=== PATIENT | male | born 1985 | race Caucasian/White ===

== ENCOUNTER 2021-11-27 14:05 | Emergency (ER) | payer SELFPAY ==
[~2021-11-27] VITALS: Ht 182.9 cm; Wt 136.0 kg
--- NOTE | 2021-11-27 14:20 | ED Abdominal Pain ---
General Stated Complaint: ABD PAIN Source of Information: Patient Exam Limitations: No Limitations (ARIS WASHBURN) History of Present Illness Date Seen by Provider: Nov 27, 2021 Time Seen by Provider: 14:19 Initial Comments Patient is a 36-year-old male who presents ED with upper abdominal pain. Pain started this morning when he woke up. Described as a sharp pain that has increase intensity throughout the morning. Not appear to be worsening with eating. No history of previous abdominal surgery. Does have a history of acid reflux. Did drink Pepto-Bismol without much improvement this morning. Did drink [employer] last night. Uses NSAID periodically. Denies of any dark tarry stool, vomiting, diarrhea. Denies history of coronary artery disease, CHF. Denies any specific chest pain however does have some subtle shortness of breath. No recent travels or surgeries, leg swelling. Denies history of similar symptoms in the past. Describes pain twyla similar to when he had kidney stones. (ARIS WASHBURN) Allergies and Home Medications Allergies Coded Allergies: Penicillins (Verified Allergy, Unknown, 11/27/21) Patient Home Medication List Home Medication List Reviewed: Yes (ARIS WASHBURN) Hydrocodone/Acetaminophen (Hydrocodone-Acetamin 5-325 mg) 5 Mg-325 Mg Tablet, 1 TAB PO Q4H PRN for PAIN-MODERATE (5-7) Prescribed by: REMY ANDREWS on 11/27/21 1521 Review of Systems Review of Systems Constitutional: No chills, No diaphoresis, No malaise, No weakness EENTM: No Eye Pain Respiratory: Denies Cough, Denies SOA With Exertion; SOA at Rest Cardiovascular: Denies Chest Pain, Denies Edema, Denies Irregular Heart Rate Gastrointestinal: Abdominal Pain; Denies Diarrhea, Denies Nausea, Denies Rectal Bleeding, Denies Vomiting Genitourinary: Denies Burning, Denies Discharge Musculoskeletal: No back pain, No joint pain Skin: No change in color, No change in hair/nails (ARIS WASHBURN) All Other Systems Reviewed Negative Unless Noted: Yes (ARIS WASHBURN) Physical Exam Vital Signs Vital Signs - First Documented 11/27/21 14:11 Temp 36.7 Pulse 65 Resp 16 B/P (MAP) 174/105 (128) Pulse Ox 98 O2 Delivery Room Air (VIGNESH PENA MD) Vital Signs Capillary Refill : (ARIS WASHBURN) Height/Weight/BMI Height: '" Weight: lbs. oz. kg; BMI Method: General Appearance: WD/WN, no apparent distress HEENT: PERRL/EOMI, normal ENT inspection, TMs normal, pharynx normal Neck: non-tender, full range of motion, supple, normal inspection Respiratory: chest non-tender, lungs clear, normal breath sounds Cardiovascular: regular rate, rhythm, no edema, no gallop Gastrointestinal: normal bowel sounds, soft, no organomegaly, tenderness (Epigastric tenderness on palpation. 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, no motor/sensory deficits, oriented x 3 Skin: normal color, warm/dry (ARIS WASHBURN) Progress/Results/Core Measures Results/Orders Lab Results Laboratory Tests Test 11/27/21 14:23 Range/Units White Blood Count 9.2 4.3-11.0 10^3/uL Red Blood Count 5.14 4.30-5.52 10^6/uL Hemoglobin 16.1 13.3-17.7 g/dL Hematocrit 46 40-54 % Mean Corpuscular Volume 90 80-99 fL Mean Corpuscular Hemoglobin 31 25-34 pg Mean Corpuscular Hemoglobin Concent 35 32-36 g/dL Red Cell Distribution Width 12.2 10.0-14.5 % Platelet Count 189 130-400 10^3/uL Mean Platelet Volume 10.3 9.0-12.2 fL Immature Granulocyte % (Auto) 0 % Neutrophils (%) (Auto) 55 42-75 % Lymphocytes (%) (Auto) 33 12-44 % Monocytes (%) (Auto) 9 0-12 % Eosinophils (%) (Auto) 2 0-10 % Basophils (%) (Auto) 0 0-10 % Neutrophils # (Auto) 5.1 1.8-7.8 X 10^3 Lymphocytes # (Auto) 3.1 1.0-4.0 X 10^3 Monocytes # (Auto) 0.8 0.0-1.0 X 10^3 Eosinophils # (Auto) 0.2 0.0-0.3 10^3/uL Basophils # (Auto) 0.0 0.0-0.1 10^3/uL Immature Granulocyte # (Auto) 0.0 0.0-0.1 10^3/uL Sodium Level 140 135-145 MMOL/L Potassium Level 3.6 3.6-5.0 MMOL/L Chloride Level 104 98-107 MMOL/L Carbon Dioxide Level 24 21-32 MMOL/L Anion Gap 12 5-14 MMOL/L Blood Urea Nitrogen 9 7-18 MG/DL Creatinine 0.82 0.60-1.30 MG/DL Estimat Glomerular Filtration Rate 115 BUN/Creatinine Ratio 11 Glucose Level 103 70-105 MG/DL Calcium Level 9.3 8.5-10.1 MG/DL Corrected Calcium 9.1 8.5-10.1 MG/DL Total Bilirubin 0.4 0.1-1.0 MG/DL Aspartate Amino Transf (AST/SGOT) 27 5-34 U/L Alanine Aminotransferase (ALT/SGPT) 42 0-55 U/L Alkaline Phosphatase 73 40-136 U/L Troponin I < 0.028 <0.028 NG/ML Total Protein 7.0 6.4-8.2 GM/DL Albumin 4.2 3.2-4.5 GM/DL Lipase 19 8-78 U/L (VIGNESH PENA MD) Vital Signs/I&O 11/27/21 11/27/21 14:11 15:30 Temp 36.7 Pulse 65 72 Resp 16 18 B/P (MAP) 174/105 (128) 163/99 Pulse Ox 98 97 O2 Delivery Room Air Room Air (VIGNESH PENA MD) Departure Communication (PCP) Patient with a history of acid reflux. Currently on Protonix 40mg . Worsening pain this morning when he woke up. No radiating pain. No nausea, vomiting, diarrhea. Similar type pain in the past but not as severe. Denies history of ulcer. No dark tarry stool. No history of previous abdominal surgery. Lab work showed normal white blood count, liver enzymes, pancreatic enzymes. Did drink yesterday with NSAID use periodically. Patient was given GI cocktail with some improvement. Due to location of pain cardiac work-up was ordered which was unremarkable. History of hypertension. Patient was given a dose of IV pain medication with improvement of pain. Discussed with patient due to reassuring lab work and imaging and the location of pain would likely be unremarkable. Does not appear to be cardiac or pulmonary in nature. He states he has had similar pain and was recommended to get EGD for further evaluation. Discussed potential possibilities such as gallbladder disease, gastric ulcer, gastritis, esophagitis, Mcmanus's. Patient acknowledges. Patient was requesting a few days worth of pain medication and if pain increases he will return back to ED. He will follow-up with his primary care physician for further evaluation and follow-up with EGD. Discussed continue with Protonix. Discussed diet changes, avoiding alcohol, NSAID use. If any worsening symptoms strongly recommend returning back to ED for further evaluation. Discussed potential change in his PPI since he has been on Protonix for some time. Patient will follow up with his primary. No surgical abdomen. No significant worsening pain with eating. He is not tachycardic or hypoxic or recent travels or surgeries suggesting PE. (ARIS WASHBURN) Impression Primary Impression: Abdominal pain Disposition: HOME, SELF-CARE Condition: Stable Departure-Patient Inst. Decision time for Depature: 15:18 (ARIS WASHBURN) [place] [facility] [place] Primary Care Physician KIMO BORJAS DO Patient Instructions: Abdominal Pain, Adult ED Scripts Hydrocodone/Acetaminophen (Hydrocodone-Acetamin 5-325 mg) 5 Mg-325 Mg Tablet 1 TAB PO Q4H PRN for PAIN-MODERATE (5-7), #8 TAB Prov: ARIS WASHBURN 11/27/21 ATTENDING PHYSICIAN NOTE: I was physically present as attending physician in the emergency department during the care of this patient, but I was not directly involved in the decision making or delivery of care for this patient. (VIGNESH PENA MD) ARIS WASHBURN Nov 27, 2021 14:20 VIGNESH PENA MD Nov 29, 2021 14:59
[2021-11-27 14:36] LABS: BASOPHILS % (AUTO) 0 % (0-10); EOSINOPHILS # (AUTO) 0.2 10^3/uL (0.0-0.3); EOSINOPHILS % (AUTO) 2 % (0-10); HEMATOCRIT 46 % (40-54); HEMOGLOBIN 16.1 g/dL (13.3-17.7); LYMPHOCYTES # (AUTO) 3.1 X 10^3 (1.0-4.0); LYMPHOCYTES % (AUTO) 33 % (12-44); MEAN CORPUSCULAR HEMOGLOBIN 31 pg (25-34); MEAN CORPUSCULAR HGB CONC 35 g/dL (32-36); MEAN CORPUSCULAR VOLUME 90 fL (80-99); MEAN PLATELET VOLUME 10.3 fL (9.0-12.2); MONOCYTES # (AUTO) 0.8 X 10^3 (0.0-1.0); MONOCYTES % (AUTO) 9 % (0-12); NEUTROPHILS # (AUTO) 5.1 X 10^3 (1.8-7.8); NEUTROPHILS % (AUTO) 55 % (42-75); PLATELET COUNT 189 10^3/uL (130-400); WHITE BLOOD COUNT 9.2 10^3/uL (4.3-11.0)
[2021-11-27 14:42] LABS: ALBUMIN 4.2 GM/DL (3.2-4.5); CHLORIDE 104 MMOL/L (98-107); POTASSIUM 3.6 MMOL/L (3.6-5.0); SODIUM 140 MMOL/L (135-145)
[2021-11-27 14:43] LABS: CALCIUM 9.3 MG/DL (8.5-10.1)
[2021-11-27 14:44] LABS: GLUCOSE 103 MG/DL (70-105)
[2021-11-27 14:45] LABS: CARBON DIOXIDE 24 MMOL/L (21-32)
[2021-11-27] MEDS ORDERED: LIDOCAINE 2% VISCOUS 15 ML UDC PO ONE (14:45)
[2021-11-27] MEDS ORDERED: ANTACID SUSP 30 ML UDC (MYLANTA) PO ONE (14:45)
[2021-11-27 14:46] LABS: BILIRUBIN,TOTAL 0.4 MG/DL (0.1-1.0)
--- NOTE | 2021-11-27 14:47 | Diagnostic Imaging Report ---
INDICATION: Chest pain. COMPARISON: None available. TECHNIQUE: Single frontal radiograph of the chest dated 11/27/2021. FINDINGS: The cardiac silhouette is within normal limits in size. No significant pulmonary vascular congestion. Low lung volumes though the lungs are clear. No pleural effusion. No pneumothorax. No acute osseous abnormality. IMPRESSION: Low lung volumes without superimposed acute cardiopulmonary abnormality. Dictated by: Dictated on workstation # [id number]
[2021-11-27 14:48] LABS: ALKALINE PHOSPHATASE 73 U/L (40-136); CREATININE SERUM 0.82 MG/DL (0.60-1.30); GFR ESTIMATED 115
[2021-11-27 14:49] LABS: BUN/CREATININE RATIO 11
[2021-11-27 14:51] LABS: ALANINE AMINOTRANSFERASE 42 U/L (0-55); LIPASE 19 U/L (8-78)
[2021-11-27] MEDS ORDERED: fentaNYL INJ 100 MCG/2 ML AMP IVP STA (15:17)
[2021-11-27] MEDS ORDERED: ACHD5005 PO ×2 (15:20→15:21)
[2021-11-27 15:30] VITALS: BP 163/99
== END 2021-11-27 15:30 | disposition home or self-care (01) ==
LOC: EDUNIT# 14:05 → ER 14:06
DX: R10.13 Epigastric pain (principal); K21.9 Gastro-esophageal reflux disease without esophagitis; Z28.310 Unvaccinated for COVID-19
CPT/HCPCS: 36415; 71045; 80053; 83690; 84484; 85025; 93005

== ENCOUNTER 2022-01-03 17:14 | Emergency (ER) | payer OTHER ==
[~2022-01-03] VITALS: Ht 182.8 cm; Wt 136.0 kg
[~2022-01-03 17:14] MED LIST: ACHD5005 PO
[2022-01-03 17:56] LABS: BILIRUBIN,URINE NEGATIVE (NEGATIVE); CLARITY,URINE CLEAR; COLOR,URINE YELLOW; GLUCOSE, URINE (UA) NEGATIVE (NEGATIVE); KETONES,URINE NEGATIVE (NEGATIVE); LEUKOCYTE ESTERASE ,URINE NEGATIVE (NEGATIVE); NITRITE,URINE NEGATIVE (NEGATIVE); PH,URINE 7.5 (5-9); PROTEIN,URINE NEGATIVE (NEGATIVE)
[2022-01-03 17:57] LABS: BASOPHILS # (AUTO) 0.1 10^3/uL (0.0-0.1); BASOPHILS % (AUTO) 1 % (0-10); EOSINOPHILS # (AUTO) 0.3 10^3/uL (0.0-0.3); EOSINOPHILS % (AUTO) 3 % (0-10); HEMATOCRIT 43 % (40-54); HEMOGLOBIN 15.5 g/dL (13.3-17.7); LYMPHOCYTES # (AUTO) 3.3 10^3/uL (1.0-4.0); LYMPHOCYTES % (AUTO) 35 % (12-44); MEAN CORPUSCULAR HEMOGLOBIN 32 pg (25-34); MEAN CORPUSCULAR HGB CONC 36 g/dL (32-36); MEAN CORPUSCULAR VOLUME 90 fL (80-99); MEAN PLATELET VOLUME 10.5 fL (9.0-12.2); MONOCYTES # (AUTO) 0.9 10^3/uL (0.0-1.0); MONOCYTES % (AUTO) 9 % (0-12); NEUTROPHILS % (AUTO) 52 % (42-75); PLATELET COUNT 187 10^3/uL (130-400); WHITE BLOOD COUNT 9.6 10^3/uL (4.3-11.0)
[2022-01-03] MEDS ORDERED: NS IV 1000 ML 1,000 ML IV SCH (18:00)
[2022-01-03] MEDS ORDERED: ONDANSETRON 4 MG/2 ML (SDV) Z0FRAN IVP ONE (18:00)
[2022-01-03] MEDS ORDERED: morphine INJ 4 MG/ML 1 ML (VIAL/SYRINGE) IVP ONE (18:00)
[2022-01-03 18:02] LABS: BACTERIA,URINE NEGATIVE /HPF; RBC,URINE RARE /HPF
[2022-01-03 18:05] LABS: ALBUMIN 4.1 GM/DL (3.2-4.5); POTASSIUM 3.5 MMOL/L (3.6-5.0)
[2022-01-03 18:06] LABS: CALCIUM 8.7 MG/DL (8.5-10.1)
[2022-01-03] MEDS ORDERED: morphine INJ 10 MG/ML 1ML (SYR OR VIAL) ONE (18:06)
[2022-01-03 18:09] LABS: BILIRUBIN,TOTAL 0.4 MG/DL (0.1-1.0)
[2022-01-03 18:11] LABS: CREATININE SERUM 0.97 MG/DL (0.60-1.30)
[2022-01-03] MEDS ORDERED: KETOROLAC 30 MG/ML VIAL IM ONE (18:30)
--- NOTE | 2022-01-03 18:37 | ED GU-Male ---
General Chief Complaint: - Reproductive Stated Complaint: BACK PAIN History of Present Illness Date Seen by Provider: Jan 03, 2022 Time Seen by Provider: 18:06 Initial Comments 36-year-old male with PMH of HTN/HDL, is here with complaints of right flank pain which began yesterday evening. Pain has been progressively increasing, and right now it is 9-10/10. Denies fever, dysuria, hematuria, abdominal pain, nausea and vomiting, constipation or diarrhea. Patient has had kidney stones in the past, about 3 years ago which he passed on his own. Allergies and Home Medications Allergies Coded Allergies: Penicillins (Verified Allergy, Unknown, 01/03/22) hydromorphone (Verified Allergy, Unknown, Shortness of Breath, 01/03/22) Patient Home Medication List Home Medication List Reviewed: Yes Hydrocodone/Acetaminophen (Hydrocodone-Acetamin 5-325 mg) 5 Mg-325 Mg Tablet, 1 TAB PO Q4H PRN for PAIN-MODERATE (5-7) Prescribed by: REMY ANDREWS on 11/27/21 1521 Review of Systems Review of Systems Constitutional: no symptoms reported EENTM: no symptoms reported Respiratory: no symptoms reported Cardiovascular: no symptoms reported Gastrointestinal: no symptoms reported Genitourinary: flank pain Musculoskeletal: no symptoms reported Skin: no symptoms reported Psychiatric/Neurological: No Symptoms Reported Endocrine: No Symptoms Reported Hematologic/Lymphatic: No Symptoms Reported Past Crvhjqk-Ldkvaj-Auxibe Hx Immunizations Up To Date First/Initial COVID19 Vaccinat: N/A Past Medical History Surgery/Hospitalization HX: HTN, ACID REFLUX Physical Exam Vital Signs Capillary Refill : Height, Weight, BMI Height: '" Weight: lbs. oz. kg; 40.00 BMI Method: General Appearance: WD/WN, no apparent distress, obese HEENT: PERRL/EOMI Neck: full range of motion Cardiovascular: regular rate, rhythm Respiratory: lungs clear, normal breath sounds Gastrointestinal: normal bowel sounds, non tender, soft, no organomegaly, no pulsatile mass Back: CVA tenderness (R) Extremities: normal range of motion Neurologic/Psychiatric: alert, normal mood/affect, oriented x 3 Skin: normal color Progress/Results/Core Measures Suspected Sepsis SIRS Temperature: Pulse: Respiratory Rate: Laboratory Tests 01/03/22 17:40: White Blood Count 9.6 Blood Pressure / Mean: Laboratory Tests 01/03/22 17:40: Creatinine 0.97, Platelet Count 187, Total Bilirubin 0.4 Results/Orders Lab Results Laboratory Tests Test 01/03/22 17:40 Range/Units White Blood Count 9.6 4.3-11.0 10^3/uL Red Blood Count 4.80 4.30-5.52 10^6/uL Hemoglobin 15.5 13.3-17.7 g/dL Hematocrit 43 40-54 % Mean Corpuscular Volume 90 80-99 fL Mean Corpuscular Hemoglobin 32 25-34 pg Mean Corpuscular Hemoglobin Concent 36 32-36 g/dL Red Cell Distribution Width 12.0 10.0-14.5 % Platelet Count 187 130-400 10^3/uL Mean Platelet Volume 10.5 9.0-12.2 fL Immature Granulocyte % (Auto) 0 % Neutrophils (%) (Auto) 52 42-75 % Lymphocytes (%) (Auto) 35 12-44 % Monocytes (%) (Auto) 9 0-12 % Eosinophils (%) (Auto) 3 0-10 % Basophils (%) (Auto) 1 0-10 % Neutrophils # (Auto) 5.0 1.8-7.8 10^3/uL Lymphocytes # (Auto) 3.3 1.0-4.0 10^3/uL Monocytes # (Auto) 0.9 0.0-1.0 10^3/uL Eosinophils # (Auto) 0.3 0.0-0.3 10^3/uL Basophils # (Auto) 0.1 0.0-0.1 10^3/uL Immature Granulocyte # (Auto) 0.0 0.0-0.1 10^3/uL Urine Color YELLOW Urine Clarity CLEAR Urine pH 7.5 5-9 Urine Specific Morris 1.020 1.016-1.022 Urine Protein NEGATIVE NEGATIVE Urine Glucose (UA) NEGATIVE NEGATIVE Urine Ketones NEGATIVE NEGATIVE Urine Nitrite NEGATIVE NEGATIVE Urine Bilirubin NEGATIVE NEGATIVE Urine Urobilinogen 1.0 < = 1.0 MG/DL Urine Leukocyte Esterase NEGATIVE NEGATIVE Urine RBC (Auto) TRACE-I H NEGATIVE Urine RBC RARE /HPF Urine WBC NONE /HPF Urine Squamous Epithelial Cells NONE /HPF Urine Crystals NONE /LPF Urine Bacteria NEGATIVE /HPF Urine Casts NONE /LPF Urine Mucus NEGATIVE /LPF Urine Culture Indicated NO Sodium Level 140 135-145 MMOL/L Potassium Level 3.5 L 3.6-5.0 MMOL/L Chloride Level 104 98-107 MMOL/L Carbon Dioxide Level 25 21-32 MMOL/L Anion Gap 11 5-14 MMOL/L Blood Urea Nitrogen 10 7-18 MG/DL Creatinine 0.97 0.60-1.30 MG/DL Estimat Glomerular Filtration Rate 102 BUN/Creatinine Ratio 10 Glucose Level 91 70-105 MG/DL Calcium Level 8.7 8.5-10.1 MG/DL Corrected Calcium 8.6 8.5-10.1 MG/DL Total Bilirubin 0.4 0.1-1.0 MG/DL Aspartate Amino Transf (AST/SGOT) 22 5-34 U/L Alanine Aminotransferase (ALT/SGPT) 40 0-55 U/L Alkaline Phosphatase 66 40-136 U/L Total Protein 7.0 6.4-8.2 GM/DL Albumin 4.1 3.2-4.5 GM/DL Lipase 24 8-78 U/L My Orders Orders - ANSELMO DALEY MD Ketorolac Injection (Toradol Injection) (01/03/22 18:30) Ct Abd/Pelvis Wo(Kidney Stone) (01/03/22 18:29) Ketorolac Injection (Toradol Injection) (01/03/22 19:15) Lumbar Spine - 2-3 Views (01/03/22 19:52) Cyclobenzaprine Tablet (Flexeril Tablet) (01/03/22 19:52) Medications Given in ED Current Medications Medications Dose Ordered Sig/Tamra Route Start Time Stop Time Status Last Admin Dose Admin Ketorolac Tromethamine 30 mg ONCE ONCE IVP 01/03/22 19:15 01/03/22 19:16 DC 01/03/22 19:08 30 MG Morphine Sulfate 4 mg ONCE ONCE IVP 01/03/22 18:00 01/03/22 18:01 DC 01/03/22 18:09 4 MG Ondansetron HCl 4 mg ONCE ONCE IVP 01/03/22 18:00 01/03/22 18:01 DC 01/03/22 18:08 4 MG Vital Signs/I&O Capillary Refill : Progress Note : Progress Note 1. RIGHT FLANK PAIN: STONE RULED OUT: BACK MUSCLE STRAIN - CT ABD & PELVIS: no acute findings - CBC/ CMP: normal - UA: Positive RBC's only - Toradol 30mg im STAT with improvement of pain to 3/10 - Continue with Ibuprofen and Baclofen as instructed by PCP - Advised lidoderm patches, heat application, and gentle stretches - Follow up with PCP in 3 to 5 days -The patient was seen in the ED, and treated appropriately to presentation at a specific point in time. Patient is informed that there is a possibility that disease and illness can evolve and change in acuity rapidly or slowly after patient is discharged from the ER. Precautionary advice given to the patient for immediate return to ER if symptoms worsen or do not resolve, and to seek emergency care sooner rather than later. Pt also advised on the importance of PCP follow up and compliance with management and follow up plan with PCP and/or specialist, as this is part of the management plan. Pt verbally expressed understanding. Diagnostic Imaging Diagonstic Imaging: Xray, CT Plain Films/CT/US/NM/MRI: abdomen, other Comments PT STATUS: REG ER : 1985 PHYSICIAN: ANSELMO DALEY MD ADMIT DATE: 01/03/22/ER Signed Date of Exam:01/03/22 CT ABD/PELVIS WO(KIDNEY STONE) PROCEDURE: CT urinary tract, rule out kidney stone. TECHNIQUE: Multiple contiguous axial images were obtained through the abdomen and pelvis without the use of intravenous contrast. Auto Exposure Controls were utilized during the CT exam to meet ALARA standards for radiation dose reduction. DATE: January 03, 2022. COMPARISON: None. INDICATION: 36-year-old male, flank pain. FINDINGS: There are limitations for evaluation of the abdominal organs, neoplastic processes, abscess, and limited evaluation of the vasculature relating to the lack of intravenous contrast. The visualized portions of the lung bases are grossly clear. The heart is not enlarged. There is no pericardial effusion. There is diffuse fatty infiltration of the liver. There is focal fatty sparing adjacent to the gallbladder fossa. The liver is not nodular in outer contour. The gallbladder is unremarkable. There is no biliary ductal dilation. The main pancreatic duct is not grossly dilated. Noncontrast assessment of the pancreatic parenchyma is unremarkable. The spleen is normal in size. The adrenal glands are unremarkable. Noncontrast assessment of the renal parenchyma is unremarkable. The urinary collecting systems are not distended. There is no identified renal or ureteral stone. The urinary bladder is unremarkable. The intestinal tract is not distended. The appendix is unremarkable. There is no free intraperitoneal air. There is no drainable fluid collection. There is no free fluid in the abdomen or pelvis. There are atherosclerotic calcifications. There is no identified abnormally enlarged lymph node in the abdomen or pelvis which meets CT size criteria for adenopathy. There is no identified acute bony abnormality. IMPRESSION: CT ABDOMEN AND PELVIS. 1. No identified acute abnormality in the abdomen or pelvis. Dictated by: Dictated on workstation # [id number] Dict: 01/03/221918 Trans: 01/03/221952 [facility] [id number] Interpreted by: ENOC LIU MD Electronically signed by: ENOC LIU MD 01/03/221952 [facility] [place] NAME: CHITO SALAZAR [facility] REC#: [id number] PT STATUS: REG ER : 1985 PHYSICIAN: ANSELMO DALEY MD ADMIT DATE: 01/03/22/ER Draft Date of Exam:01/03/22 LUMBAR SPINE - 2-3 VIEWS EXAMINATION: Lumbar spine radiographs, 3 views. COMPARISON: None. HISTORY: 36-year-old male, low back pain. 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 The alignment of the lumbar spine is grossly unremarkable. The lumbar disc heights are well-preserved. There is no identified compression deformity or fracture. The facet articulations are unremarkable. Unremarkable appearance of the sacroiliac joints. IMPRESSION: 1. Grossly unremarkable radiographic evaluation of the lumbar spine. Dictated on workstation # [id number] Dict: 01/03/222033 Trans: 01/03/222040 [facility] [id number] Interpreted by: ENOC LIU MD Electronically signed by: Departure Impression Primary Impression: Strain of muscle, fascia and tendon of lower back, initial encounter Disposition: 01 HOME, SELF-CARE Condition: Stable Departure-Patient Inst. Referrals: [facility] (PCP/Family) Primary Care Physician Patient Instructions: Back Muscle Strain, Muscle Strain (DC) Add. Discharge Instructions: Continue with Ibuprofen and Baclofen as instructed by PCP - Advised lidoderm patches, heat application, and gentle stretches - Follow up with PCP in 3 to 5 days All discharge instructions reviewed with patient and/or family. Voiced understanding. ANSELMO DALEY MD Jan 03, 2022 18:37
[2022-01-03] MEDS ORDERED: KETOROLAC 30 MG/ML VIAL IVP ONE (19:15)
--- NOTE | 2022-01-03 19:34 | Diagnostic Imaging Report ---
PROCEDURE: CT urinary tract, rule out kidney stone. TECHNIQUE: Multiple contiguous axial images were obtained through the abdomen and pelvis without the use of intravenous contrast. Auto Exposure Controls were utilized during the CT exam to meet ALARA standards for radiation dose reduction. DATE: January 03, 2022. COMPARISON: None. INDICATION: 36-year-old male, flank pain. FINDINGS: There are limitations for evaluation of the abdominal organs, neoplastic processes, abscess, and limited evaluation of the vasculature relating to the lack of intravenous contrast. The visualized portions of the lung bases are grossly clear. The heart is not enlarged. There is no pericardial effusion. There is diffuse fatty infiltration of the liver. There is focal fatty sparing adjacent to the gallbladder fossa. The liver is not nodular in outer contour. The gallbladder is unremarkable. There is no biliary ductal dilation. The main pancreatic duct is not grossly dilated. Noncontrast assessment of the pancreatic parenchyma is unremarkable. The spleen is normal in size. The adrenal glands are unremarkable. Noncontrast assessment of the renal parenchyma is unremarkable. The urinary collecting systems are not distended. There is no identified renal or ureteral stone. The urinary bladder is unremarkable. The intestinal tract is not distended. The appendix is unremarkable. There is no free intraperitoneal air. There is no drainable fluid collection. There is no free fluid in the abdomen or pelvis. There are atherosclerotic calcifications. There is no identified abnormally enlarged lymph node in the abdomen or pelvis which meets CT size criteria for adenopathy. There is no identified acute bony abnormality. IMPRESSION: CT ABDOMEN AND PELVIS. 1. No identified acute abnormality in the abdomen or pelvis. Dictated by: Dictated on workstation # [id number]
[2022-01-03] MEDS ORDERED: CYCLOBENZAPRINE 10 MG (FLEXERIL) TAB PO STA (19:52)
--- NOTE | 2022-01-03 20:42 | Diagnostic Imaging Report ---
EXAMINATION: Lumbar spine radiographs, 3 views. COMPARISON: None. HISTORY: 36-year-old male, low back pain. 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 The alignment of the lumbar spine is grossly unremarkable. The lumbar disc heights are well-preserved. There is no identified compression deformity or fracture. The facet articulations are unremarkable. Unremarkable appearance of the sacroiliac joints. IMPRESSION: 1. Grossly unremarkable radiographic evaluation of the lumbar spine. Dictated by: Dictated on workstation # [id number]
[2022-01-03 21:16] VITALS: BP 109/73
== END 2022-01-03 21:23 | disposition home or self-care (01) ==
LOC: EDUNIT# 17:14 → ER 17:15
DX: S39.012A Strain of muscle, fascia and tendon of lower back, initial encounter (principal); E66.9 Obesity, unspecified; Z68.41 Body mass index [BMI] 40.0-44.9, adult; Z87.442 Personal history of urinary calculi; Z88.5 Allergy status to narcotic agent; Z28.310 Unvaccinated for COVID-19; X58.XXXA Exposure to other specified factors, initial encounter
CPT/HCPCS: 36415; 72100; 74176; 80053; 81000; 83690; 85025